=== PATIENT | female | born 1960 | race Caucasian/White ===

== ENCOUNTER 2020-10-13 07:58 | Observation (INO) ==
[~2020-10-13 07:58] MED LIST: Buffered Lidocaine 1% SYRIN 1 ml INTRADERM ONE; Lactated Ringers 1000 ml BAG 1,000 ML IV SCH
[2020-10-13] MEDS ORDERED: ceFAZolin 2 GM PREMIX 2 GM/50 ML BAG ONE (08:19)
[2020-10-13] MEDS ORDERED: Midazolam 2 mg/2 ml VIAL 1 mg/ml 2 ml VIAL (2 mg) ONE ×2 (08:30→10:55)
[2020-10-13] MEDS ORDERED: Dexamethasone IV 4 MG/ML VIAL 1 ml VIAL ONE (08:33)
[2020-10-13] MEDS ORDERED: Ondansetron 4 mg VIAL 2 MG/ML 2 ml VIAL ONE (08:33)
[2020-10-13] MEDS ORDERED: Midazolam 5 mg/5 ml VIAL 1 mg/ml 5 ml VIAL (5 mg) ONE (09:36)
[2020-10-13] MEDS ORDERED: fentaNYL 100 mcg/2 ml 50 MCG/ML VIAL ONE (09:36)
[2020-10-13] MEDS ORDERED: ROPIVACAINE 5 MG/ML 30 ML BTL (0.5%) ONE (09:40)
[2020-10-13] MEDS ORDERED: Bupivacaine 0.5% 50 ML MDV VIAL ONE (10:07)
[2020-10-13] MEDS ORDERED: Naloxone 0.4 mg VIAL 0.4 mg/ml 1 ml VIAL IV PRN (10:08)
[2020-10-13] MEDS ORDERED: HYDROmorphone 1 MG/1 ML SYRINGE IV PRN (10:08)
[2020-10-13] MEDS ORDERED: diPHENhydraMINE IV 50 MG/ML 1 ml VIAL (BENADRYL) IV PRN ×2 (10:08→13:48)
[2020-10-13] MEDS ORDERED: Prochlorperazine 5 mg/ml 2 ml VIAL (10 mg) IV PRN (10:08)
[2020-10-13] MEDS ORDERED: Propofol 10 MG/ML 20 ML BTL ONE ×2 (10:21→13:25)
[2020-10-13] MEDS ORDERED: Lidocaine 2% PF 5 ML VIAL ONE (12:43)
[2020-10-13] MEDS ORDERED: diPHENhydraMINE 25 mg TAB PO PRN (13:48)
[2020-10-13] MEDS ORDERED: Ondansetron 4 mg VIAL 2 MG/ML 2 ml VIAL IV PRN (13:48)
[2020-10-13] MEDS ORDERED: Magnesium Hydroxide LIQ 30 ML UDC PO PRN (13:48)
[2020-10-13] MEDS ORDERED: Lactulose 30 ml UDC PO PRN (13:48)
[2020-10-13] MEDS ORDERED: Morphine 2 MG/ML SYRINGE IV PRN (13:48)
[2020-10-13] MEDS ORDERED: Ondansetron ODT 4 mg TAB 4 MG TAB PO PRN (13:48)
[2020-10-13] MEDS: Lactated Ringers 1000 ml BAG 1,000 ML IV SCH (15:02)
[2020-10-13] MEDS: ceFAZolin 1 GM ADVAN 1 GM in NS 0.9% 50 ML 50 ML IVPB SCH (16:12)
[2020-10-13] MEDS: Magnesium Hydroxide LIQ 30 ML UDC PO SCH (21:37)
[2020-10-14] MEDS: ceFAZolin 1 GM ADVAN 1 GM in NS 0.9% 50 ML 50 ML IVPB SCH ×2 (00:20→08:04)
[2020-10-14] MEDS: Lactated Ringers 1000 ml BAG 1,000 ML IV SCH (00:20)
[2020-10-14 04:53] LABS: Hematocrit 35 % (35-47); Hemoglobin 11.9 g/dL (12.0-16.0); Mean Platelet Volume 7.3 fL (7.4-10.4); Platelet Count 181 10^3/uL (150-450)
[2020-10-14 05:13] LABS: BUN/Creatinine Ratio 23.1 (8-20); Calcium 9.1 mg/dL (8.6-10.3); EGFR African American 112.1 (>60); EGFR Non-African American 92.7 (>60); Potassium 4.3 mmol/L (3.5-5.0)
[2020-10-14] MEDS: Magnesium Hydroxide LIQ 30 ML UDC PO SCH (08:02)
[2020-10-14] MEDS ORDERED: Vitamin THERAPEUTIC TAB PO SCH (09:00)
[2020-10-14 11:25] VITALS: BP 125/65
== END 2020-10-14 13:00 | disposition home or self-care (01) ==
LOC: SSU 07:58 → OR 07:58
PROVIDERS: ADMIT Orthopaedic Surgery Adult Reconstructive Orthopaedic Surgery; ATTEND Orthopaedic Surgery Adult Reconstructive Orthopaedic Surgery